=== PATIENT | female | born 1990 | race Caucasian/White ===

== ENCOUNTER 2016-12-13 14:56 | Observation (INO) ==
[2016-12-13 16:19] LABS: Bilirubin,Urine Small (Negative); Blood,Urine Negative (Negative); Clarity,Urine Cloudy (Clear); Color,Urine Yellow (Yellow); Glucose,Urine (UA) Normal (Normal); Ketones,Urine Trace mg/dL (Negative); Leukocyte Esterase,Urine Moderate (Negative); Nitrite,Urine Negative (Negative); Protein,Urine Negative (Neg-Trace); Specific Gravity,Urine 1.027 (1.010-1.025); Urobilinogen,Urine Normal (Normal)
[2016-12-13 16:22] LABS: Bacteria,Urine Many per hpf (None-Few); RBC,Urine 0-3 per hpf (0-3); Squamous Epithelial Cell,Urine Many per lpf (None-Few); WBC,Urine TNTC per hpf (0-3)
[2016-12-13 16:32] LABS: Uric Acid Crystals,Urine Present
[2016-12-13 16:33] LABS: Calcium Oxalate Crystals,Urine Present
--- NOTE | 2016-12-19 14:52 | OB Labor Progress Note ---
Date of Encounter: 12/14/16 Time of Encounter: 16:50 Labor Progress Note - Plan Plan: 26 y/o @ 22+4 weeks presented to L and D as a labor eval, cervix closed, UA sent for culture, FHT checked, patient discharged to follow up outpt
== END 2016-12-13 17:00 | disposition home or self-care (01) ==
LOC: 1NENULAB
PROVIDERS: ADMIT Student in an Organized Health Care Education/Training Program; ATTEND Student in an Organized Health Care Education/Training Program

== ENCOUNTER 2017-03-17 06:49 | Inpatient (IN) ==
[~2017-03-17 06:49] MED LIST: Famotidine 20 MG/2 ML VIAL IVP PRN; Metoclopramide 10 MG/2 ML VIAL IVP PRN; Naloxone 0.4 MG/ML INJ IVP PRN; Penicillin G Potassium 5,000,000 UNIT in D5% in Water (Mini-Bag+) 100 ML IVPB ONE; Ringers Solution, Lactated 1,000 ML IVC SCH
--- NOTE | 2017-03-17 07:26 | OB/GYN History & Physical ---
Date of Encounter: 03/17/17 Time of Encounter: 07:03 Assessment and Plan (1) 36 weeks gestation of Current visit: Yes Status: Acute Admit to labor and delivery for labor GBS status unknown - PCN prophylaxis started CBC Patient may have nubain and epidural upon request Consider pitocin augmentation Vaginal delivery anticipated POC per consult with Dr Jolley (2) Rupture of membranes with clear amniotic fluid Current visit: Yes Status: Acute GBS status unknown - PCN prophylaxis known (3) Gestational diabetes mellitus (GDM) affecting first Current visit: Yes Status: Acute Accuchecks every 2 hours History of Present Illness Chief complaint: SROM HPI: Ms. Goldberg is a 26 year old female female at 36 weeks 0 days gestation that arrives to labor and delivery with c/o leaking of fluid and cramping. Upon exam she was found to be grossly ruptured and 4cm dilated. Her has been complicated by hypothyroidism and gestation diabetes controlled with metformin, NPH, and humalog. Her level II ultrasound was normal. Her blood type is O positive. Her serology is insignificant. Due to her gestational age, her GBS was not completed. Past Med Surg Social Fam HX - Past Medical History Medical history: thyroid disease Psychiatric history: no psych history - Past Surgical History Surgical History: no surgical history - Social History Smoking Status: Never smoker Smokeless Tobacco Status: No Alcohol use: none Drug use: none - Family History Father Living Status: Still Living Hx Family Cardiac Disorders: Yes (HTN, high cholesterol) Hx Family Respiratory Disorders: No Hx Family Cancer: No Hx Family GI Disorders: No Hx Family Genitourinary Disorders: No Hx Family Endocrine Disorder: Yes (DM) Hx Family Musculoskeletal Disorders: No Hx Family Neuromuscular Disorders: No Hx Family Neurologic Disorders: No Hx Family HEENT Disorders: No Hx Family Autoimmune Disorders: No Hx Family Reproductive Disorders: No Hx Family Psychosocial Disorders: No Hx Family Medical Disorders: No Obstetrical History - Pregnancies : 1 Para: 0 Term: 0 : 0 Ab's: 0 Livin Medications and Allergies Cholecalciferol (D-3) [Vitamin D] 1 tab PO DAILY 12/13/16 [History] Levothyroxine [Synthroid] 37 mcg PO DAILY 12/13/16 [History] Vit No.129/Iron/FA [ One Daily Tablet] 1 tab PO DAILY 12/13/16 [History] metFORMIN [Glucophage] 1 tab PO TID 12/13/16 [History] Insulin LISPRO [HumaLOG] 8 units SQ WMHS 03/17/17 [History] Insulin NPH [HumuLIN NPH] 6 unit SQ HS 03/17/17 [History] Allergies morphine Allergy (Verified 12/13/16 15:33) Swelling of Lip/Tongue/Throat Review of System OB All systems PM: reviewed and no additional remarkable complaints except as stated Exam - Constitutional Constitutional: well developed, well nourished, no acute distress, average body habitus - HEENT HEENT: Normocephaly, Mucus Membranes Moist - Neck Neck exam: full ROM, normal inspection - Lungs Respiratory exam: CTAB - Cardiovascular Cardiovascular exam: RRR, +S1, +S2 - Abdomen Abdomen: Present: bowel sounds normal, gravid, non tender - Extremities Extremities exam: normal capillary refill, normal inspection, radial pulses palpable and symetrical Deep Tendon Reflex Grade: 1+ Diminished - Cervix Dilation: 4 (Per RN exam) Effacement: 90 (Per RN exam) Station: -2 - Uterus Uterus exam: Present: normal size (Gravid) Results All other labs normal. - VTE Reasons for not Prescribing Prophylaxis: Treatment not Indicated - Low risk for VTE
[2017-03-17 07:46] LABS: Basophils % 0.2 %; Eosinophils # 0.1 K/mcL (0.0-0.6); Eosinophils % 1.1 %; Hemoglobin 13.7 g/dL (11.5-15.4); Immature Granulocytes % 0.8 % (0-4); Lymphocytes # 1.6 K/mcL (0.6-4.6); Lymphocytes % 12.1 %; Mean Corpuscular HGB Conc 34.3 g/dL (31.6-35.5); Mean Corpuscular Hemoglobin 29.6 pg (28.0-33.3); Mean Corpuscular Volume 86.4 fL (83.0-100.0); Mean Platelet Volume 9.1 fL (9.4-12.4); Monocytes # 0.6 K/mcL (0.0-1.3); Monocytes % 4.7 %; Neutrophils # 10.4 K/mcL (1.6-8.9); Platelet Count 257 K/mcL (140-400); Red Blood Count 4.63 M/mcL (3.82-4.97); Red Cell Distribution Width 13.4 % (11.5-14.5); Segmented Neutrophils % 81.1 %
[2017-03-17] MEDS: 0.9 % Sodium Chloride 1,000 ML IVC SCH ×2 (07:54→11:16)
--- NOTE | 2017-03-17 08:57 | OB Labor Progress Note ---
Date of Encounter: 03/17/17 Time of Encounter: 08:55 Labor Progress Note - Subjective Subjective: The patient reports that she is mildly uncomfortable with her contractions. She is still losing small amounts of clear fluid. Fetus is active. The patient is declining any pain management at this time - Vital Signs Vital Signs: Afebrile, vital signs stable - Cervix Cervix: 5/90/-1 vtx - Heart Tones Heart Tones: 140s CAT1 - [place]: Contractions spontaneously every 2-5 minutes - Interventions Interventions: 36 week IUP with spontaneous rupture of membranes. Unknown GBS status. History of insulin resistance on insulin, last dose last night - Plan Plan: Monitor blood sugars every 2 hours. Initial blood sugar 86. Penicillin prophylaxis per protocol. Anticipate vaginal delivery.
--- NOTE | 2017-03-17 09:54 | Anesthesia Evaluation PreOp ---
Date of Encounter: 03/17/17 Time of Encounter: 08:50 - Past History Planned Operation: Possible CHETAN/ csection Cardiac History: Denies any Significant Hx Pulmonary History: Denies Any Significant HX BLOCK PILER History: Denies Any Significant HX Other Medical History: Thyroid ([place]imotos - takes synthroid), Other ( gestational diabetes) Anesthesia History: No Prior Anesthetic Complications, Past Anesthesia ( Phlebectomy) : Yes Alcohol Use: none Drug use: none Medications and Allergies Cholecalciferol (D-3) [Vitamin D] 1 tab PO DAILY 12/13/16 [History] Levothyroxine [Synthroid] 37 mcg PO DAILY 12/13/16 [History] Vit No.129/Iron/FA [ One Daily Tablet] 1 tab PO DAILY 12/13/16 [History] metFORMIN [Glucophage] 1 tab PO TID 12/13/16 [History] Insulin LISPRO [HumaLOG] 8 units SQ WMHS 03/17/17 [History] Insulin NPH [HumuLIN NPH] 6 unit SQ HS 03/17/17 [History] Allergies morphine Allergy (Verified 12/13/16 15:33) Swelling of Lip/Tongue/Throat - Meds/Allergy Pre-op Review Medications Reviewed: Yes Allergies Reviewed: Yes Beta Blockers on Current Med List: No Anesthesia Results - Labs 03/17/17 07:30 03/17/17 07:30 Anesthesia Exam Bp 111/75 P 77 Height: 5'8" Weight: 87kg NPO (# of Hours): 3 Pain Scale: 2 Pain Scale Used: Numeric (1 - 10) - HEENT Pupil (Motor): Pupils equal Mallampati: II Teeth: Normal Oral Opening: Greater than 3 - BLOCK PILER BLOCK PILER Motor: Normal RUE, Normal LUE, Normal RLE, Normal LLE, Normal Face BLOCK PILER Sensory: Normal: RUE, LUE, RLE, LLE, Face - Cardiac Rhythm: Regular Murmur: None JVD: No Carotid Bruit: No - Pulmonary Breath Sounds: bilateral Clear Respiratory Effort: Symmetrical Anesthesia Assess/Plan ASA Score: 2 Modified Franchesca Scale for Level of Consciousness: Cooperative, oriented, and tranquil Anesthetic Plan: General, Regional Autologous Blood: No Monitoring Plan: Standard Monitors Recovery Plan: Other
[2017-03-17] MEDS ORDERED: Epidural Premix (fent/bupiv) 110 ML EP ONE ×2 (11:28→17:35)
[2017-03-17] MEDS ORDERED: Bupivacaine-MPF 0.25% 10 ML VIAL ONE (11:28)
[2017-03-17] MEDS ORDERED: *HR* FentaNYL (PF) 100 MCG/2 ML VIAL ONE (11:28)
[2017-03-17] MEDS: Penicillin G Potassium 2,500,000 UNIT in D5% in Water 100 ML IVPB SCH ×2 (12:05→16:07)
[2017-03-17] MEDS ORDERED: Bupivacaine-MPF 0.25% 10 ML VIAL EP ONE (12:07)
[2017-03-17] MEDS ORDERED: *HR* FentaNYL (PF) 100 MCG/2 ML VIAL EP ONE (12:07)
[2017-03-17] MEDS ORDERED: EPHEDrine 50 MG/ML VIAL IVP PRN (12:07)
[2017-03-17] MEDS ORDERED: Ondansetron 4 MG/2 ML VIAL IVP PRN (12:07)
--- NOTE | 2017-03-17 12:10 | Anesthesia Procedures ---
Date of Encounter: 03/17/17 Time of Encounter: 11:34 Procedures: Anesthesia - Epidural/Spinal Patient ID/Chart reviewed: Yes Patient examined: Yes OB Eval: Gestational age: 37 OB Eval: : 1 OB Eval: Hx Para: 0 OB Eval: Dilated at (cm): 5 OB Eval: Contractions: Non-stressed pattern Consent Obtained: Yes Supplemental Oxygen: None/Room Air Site Prep: Aseptic Technique, Sterile prep and drape, Povidone-Iodine 1% Patient position: upright Local Anesthetic: Lidocaine 1% Amount of Local Anesthetic used: 3 Touhy Needle Gauge: 18 Touhy Needle Depth (cm): 6 Catheter Depth at Skin (cm): 14 Test Dose (1.5% Lido + Epi): Volume given (mls): 3 Test Dose Result: Negative Loading Dose: 0.25% Marcaine (mls): 10 Loading Dose: Fentanyl (mcg): 100 Loading Dose Administered: Thru Catheter Infusion Med: 0.125% Bupivacaine w/ 2 mcg/ml Fentanyl Infusion Rate (mls/hr): [address]: Tegaderm, Tape Interspace Used: L4-L5 Loss of Resistance (TOM): Yes Blood: No CSF: No Paresthesia: No Procedure: CHETAN placed 1st pass without any immediate noted complications. VSS throughout. Vitals + FHT's: 1134 BP 134/84\ P 92 1200 BP 115/77 P 74
[2017-03-17] MEDS ORDERED: Epidural Premix (fent/bupiv) 110 ML EP SCH (12:15)
[2017-03-17] MEDS ORDERED: Oxytocin 20 units/ LR 1000 mL 20 UNIT/1,000 ML BAG IVC ONE (15:10)
[2017-03-17] MEDS ORDERED: Oxytocin 20 units/ LR 1000 mL 20 UNIT/1,000 ML BAG IVC SCH ×2 (19:00→21:50)
--- NOTE | 2017-03-17 20:21 | OB/GYN Procedure Note ---
Delivery - Delivery Date: 03/17/17 Provider: Gilma Malhotra Intrapartum events: none Delivery induction: none Delivery augmentation: pitocin Delivery monitor: external FHT, external uterine Anesthesia: epidural Estimated Blood Loss: 100 - (s) Infant A Delivery Date: 03/17/17 Delivery Time: 19:37 Presentation: vertex Position: KEANU Route of delivery: Gender: Male Viability: Viable Pounds: 6 Ounces: 3 Weight Gram: 2.815 kg at 1 minute: 8 at 5 mins: 9 Shoulder Dystocia: not encountered Specimens collected: cord blood Placenta: spontaneous, uterine exploration (No retained products of conception or abnormalities palpated) Cord: 3 umbilical vessels - Repair Episiotomy: none Laceration Description: Perineal - 2nd Degree, Labial (right) - Complications Delivery complications: none Delivery comments: The patient was complete and pushing with epidural anesthesia with a spontaneous vaginal delivery in the KEANU position of a vigorous male weighing 6 lbs. 3 oz. with Apgars of 8 at 1 minute and 9 at 5 minutes. Infant was placed on the maternal abdomen. The cord was clamped and cut after pulsations ceased. Cord blood obtained. The placenta was delivered spontaneous and intact. Right labial laceration was repaired with 4-0 Monocryl in a running nonlocking fashion. There is a second-degree perineal laceration which was repaired with 3-0 Vicryl in the usual fashion. Estimated blood loss 100 mL, complications none - Disposition Mom disposition: stable in LDR disposition: stable in LDR
[2017-03-17] MEDS ORDERED: Rho Immune Globulin 1,500 UNIT SYRINGE IM PRN (21:50)
[2017-03-17] MEDS ORDERED: *HR* HYDROcodone/Acet 5/325 mg TABLET PO PRN (21:50)
[2017-03-17] MEDS ORDERED: Measles/Mumps/Rubella Vacc 0.5 ML VIAL SQ PRN (21:50)
[2017-03-18] MEDS: Ibuprofen 600 MG TABLET PO PRN ×2 (03:43→15:42)
[2017-03-18 06:12] LABS: Basophils % 0.2 %; Eosinophils # 0.2 K/mcL (0.0-0.6); Eosinophils % 1.1 %; Hematocrit 36.8 % (35.3-44.9); Hemoglobin 12.6 g/dL (11.5-15.4); Immature Granulocytes % 0.9 % (0-4); Lymphocytes # 1.5 K/mcL (0.6-4.6); Lymphocytes % 10.6 %; Mean Corpuscular HGB Conc 34.2 g/dL (31.6-35.5); Mean Corpuscular Hemoglobin 30.1 pg (28.0-33.3); Mean Platelet Volume 9.3 fL (9.4-12.4); Monocytes % 7.3 %; Neutrophils # 11.4 K/mcL (1.6-8.9); Platelet Count 225 K/mcL (140-400); Red Blood Count 4.18 M/mcL (3.82-4.97); Red Cell Distribution Width 13.6 % (11.5-14.5); Segmented Neutrophils % 79.9 %
[2017-03-18] MEDS: *HR* Metformin 500 MG TABLET PO SCH (08:57)
[2017-03-18] MEDS: Prenatal Vit/FA 1 EACH TABLET PO SCH (08:57)
[2017-03-18] MEDS ORDERED: LEVOTHYROXINE PO SCH (09:00)
[2017-03-18] MEDS: Levothyroxine 25 MCG TABLET PO SCH (10:15)
--- NOTE | 2017-03-18 10:41 | OB/GYN Progress Note ---
Date of Encounter: 03/18/17 Time of Encounter: 10: - Assessment and Plan (1) Status post vaginal delivery Current Visit: Yes Status: Acute s/p , PPD#1, patient doing very well, cont current inpt care, ok for discharge tomorrow, cont Metformin, check FS for 24 hrs Subjective - Subjective Patient reports: appetite normal, voiding normally, pain well controlled, ambulating normally : doing well Objective - Latest Vital Signs Latest vital signs: Vital Signs Temp Pulse Resp BP Pulse Ox 03/18/17 08:05 97.7 F 79 16 109/78 96 03/18/17 03:22 98.2 F 93 16 110/78 97 03/18/17 01:15 98.5 F 95 16 115/76 97 03/17/17 23:28 98.4 F 99 16 122/82 98 03/17/17 22:40 98.3 F 94 16 119/83 98 Intake and Output 03/17/17 03/18/17 03/18/17 23:59 07:59 15:59 Intake Total 900 / 900 700 / 700 400 / 400 Output Total 1550 / 1550 1100 / 1100 600 / 600 Balance -650 / -650 -400 / -400 -200 / -200 Intake: Oral 900 / 900 200 / 200 400 / 400 Other 500 / 500 Output: Urine 450 / 450 1100 / 1100 600 / 600 Straight Cath 200 / 200 Catheter 900 / 900 Other: Weight 85.7 kg 86.3 kg Blood Glucose* 102 Patient Weight 03/18/17 23:59 Weight 86.3 kg - Exam Lungs: bilateral: normal Chest: Normal S1, Normal S2 Extremities: Present: normal Abdomen: Present: normal appearance, soft Uterus: Present: firm - Labs Labs: Laboratory Results - last 24 hr 03/17/17 03/17/17 03/17/17 11:24 13:32 15:32 WBC RBC Hgb Hct MCV MCH MCHC RDW Plt Count MPV Immature Gran % Seg Neutrophils % Lymphocytes % Monocytes % Eosinophils % Basophils % Neutrophils # Lymphocytes # Monocytes # Eosinophils # Basophils # Glucose POC Glucose 90 H 88 83 03/17/17 03/18/17 03/18/17 17:30 05:29 05:29 WBC 14.3 H RBC 4.18 Hgb 12.6 Hct 36.8 MCV 88.0 MCH 30.1 MCHC 34.2 RDW 13.6 Plt Count 225 MPV 9.3 L Immature Gran % 0.9 Seg Neutrophils % 79.9 Lymphocytes % 10.6 Monocytes % 7.3 Eosinophils % 1.1 Basophils % 0.2 Neutrophils # 11.4 H Lymphocytes # 1.5 Monocytes # 1.0 Eosinophils # 0.2 Basophils # 0.0 Glucose 106 H POC Glucose 81 0517 07:53 WBC RBC Hgb Hct MCV MCH MCHC RDW Plt Count MPV Immature Gran % Seg Neutrophils % Lymphocytes % Monocytes % Eosinophils % Basophils % Neutrophils # Lymphocytes # Monocytes # Eosinophils # Basophils # Glucose POC Glucose 102 H
[2017-03-19] MEDS: Ibuprofen 600 MG TABLET PO PRN (02:39)
[2017-03-19] MEDS: Levothyroxine 25 MCG TABLET PO SCH (06:34)
[2017-03-19 08:32] VITALS: BP 115/79
[2017-03-19] MEDS: Prenatal Vit/FA 1 EACH TABLET PO SCH (08:32)
[2017-03-19] MEDS: *HR* Metformin 500 MG TABLET PO SCH (08:32)
--- NOTE | 2017-03-19 11:01 | Discharge Summary ---
Date of Encounter: 03/19/17 Time of Encounter: 10:59 - Discharge Diagnosis (1) delivery Priority: Primary Status: Acute Comments: The patient is doing well. She will be discharged at 48 hours. She is requesting a breast pump. Her will be observed overnight due to prematurity - Discharge Medications Prescriptions: Ibuprofen [Motrin] 600 mg PO Q6HR PRN #30 tablet PRN Reason: moderate pain Breast Pump [BREAST PUMP] 1 each .ROUTE AD #1 each Home Medications: Cholecalciferol (D-3) [Vitamin D] 1 tab PO DAILY 12/13/16 [History] Levothyroxine [Synthroid] 37 mcg PO DAILY 12/13/16 [History] Vit No.129/Iron/FA [ One Daily Tablet] 1 tab PO DAILY 12/13/16 [History] metFORMIN [Glucophage] 1 tab PO TID 12/13/16 [History] Breast Pump [BREAST PUMP] 1 each .ROUTE AD #1 each 03/19/17 [Rx] Ibuprofen [Motrin] 600 mg PO Q6HR PRN #30 tablet 03/19/17 [Rx] Allergies/Adverse Reactions: Allergies morphine Allergy (Verified 12/13/16 15:33) Swelling of Lip/Tongue/Throat Data Procedures and tests throughout hospitalization: Laboratory Tests 03/17/17 03/17/17 03/17/17 07:30 07:30 09:28 WBC 12.8 H RBC 4.63 Hgb 13.7 Hct 40.0 MCV 86.4 MCH 29.6 MCHC 34.3 RDW 13.4 Plt Count 257 MPV 9.1 L Immature Gran % 0.8 Seg Neutrophils % 81.1 Lymphocytes % 12.1 Monocytes % 4.7 Eosinophils % 1.1 Basophils % 0.2 Neutrophils # 10.4 H Lymphocytes # 1.6 Monocytes # 0.6 Eosinophils # 0.1 Basophils # 0.0 Glucose 87 POC Glucose 94 H 03/17/17 03/17/17 03/17/17 11:24 13:32 15:32 WBC RBC Hgb Hct MCV MCH MCHC RDW Plt Count MPV Immature Gran % Seg Neutrophils % Lymphocytes % Monocytes % Eosinophils % Basophils % Neutrophils # Lymphocytes # Monocytes # Eosinophils # Basophils # Glucose POC Glucose 90 H 88 83 03/17/17 03/18/17 03/18/17 17:30 05:29 05:29 WBC 14.3 H RBC 4.18 Hgb 12.6 Hct 36.8 MCV 88.0 MCH 30.1 MCHC 34.2 RDW 13.6 Plt Count 225 MPV 9.3 L Immature Gran % 0.9 Seg Neutrophils % 79.9 Lymphocytes % 10.6 Monocytes % 7.3 Eosinophils % 1.1 Basophils % 0.2 Neutrophils # 11.4 H Lymphocytes # 1.5 Monocytes # 1.0 Eosinophils # 0.2 Basophils # 0.0 Glucose 106 H POC Glucose 81 03/18/17 03/18/17 03/18/17 07:53 11:32 15:45 WBC RBC Hgb Hct MCV MCH MCHC RDW Plt Count MPV Immature Gran % Seg Neutrophils % Lymphocytes % Monocytes % Eosinophils % Basophils % Neutrophils # Lymphocytes # Monocytes # Eosinophils # Basophils # Glucose POC Glucose 102 H 92 H 131 H 03/18/17 22:18 WBC RBC Hgb Hct MCV MCH MCHC RDW Plt Count MPV Immature Gran % Seg Neutrophils % Lymphocytes % Monocytes % Eosinophils % Basophils % Neutrophils # Lymphocytes # Monocytes # Eosinophils # Basophils # Glucose POC Glucose 112 H Labs on day of discharge: Labs from last 24 hours 03/18/17 03/18/17 03/18/17 22:18 15:45 11:32 POC Glucose 112 H 131 H 92 H Date of admission: 03/17/17 06:49 Primary care physician: PCP NO Consults: 03/17/17 21:50 Consult to Scale Adjuster [CONS] Routine Comment: Vaginal delivery, consult needed Discharging clinician: Gilma Malhotra Anticipated date of discharge: 03/19/17 - Patient Status Disposition: Home, Self-Care Condition: Good Functional capacity at discharge: independent ambulation Overall status at discharge: patient is progressing back to baseline - Discharge Instructions Follow Up With: NO,PCP [Primary Care Provider] - Additional Instructions: Perineal Care: Always wipe front to back Change your pad frequently Use your raysa bottle with warm water and spray front to back Do not douche, use tampons, have sexual intercourse or put anything in your vagina for 4-6 weeks after delivery Bleeding: Vaginal bleeding can last up to 6 weeks Your menstrual period may return as early as 6 weeks after you are discharged from the hospital Pj/Stitches Care: Vaginal Delivery Vaginal stitches will dissolve within 4-6 weeks Follow perineal care instructions Care Stitches will dissolve on their own If you have pj, they will need to be removed in the doctors office within 5-7 days. You may shower with stitches or pj Drip plan or soapy water over the incision to clean. Pat dry gently with a clean towel. Make sure you completely dry under the skin folds DO NOT USE powders, lotions, rubbing alcohol or hydrogen peroxide on or around your incision. This will slow your wound healing It is normal to have soreness, burning, tingling, itchiness and/or numbness as your incision heals Activity: Rest frequently Do not lift anything heavier than a gallon of milk, up to 10-15 pounds No driving for 1-2 weeks for Vaginal delivery No driving for 2-4 weeks for delivery Take stairs slowly, one at a time Gradually increase your daily activity until you are back to your normal routine Do not exercise until you have had your follow-up appointment Bathing: Take a shower daily Do not take a tub bath for the first 4 weeks Diet: Drink plenty of water and fruit juices Eat a well-balanced diet with foods high in fiber such as fruits and vegetables Depression: Your hormones have a major impact on your feelings and emotions. Hormone imbalance may cause changes in your mood, creating unfamiliar thoughts and actions. Support is available to help you understand and cope with these feelings and mood changes. If you answer yes to any of the following questions, please call your health care provider: Are you having trouble sleeping? Are you feeling isolated? Have you lost your appetite? Are you having thoughts of hurting yourself or others? WARNING SIGNS: Heavy bleeding from the vagina (blood is bright red and soaks a sanitary pad in an hour or less.) Passing a blood clot larger than your fist Discharge from the vagina that has a bad odor Temperature over 100.4 F, or if you feel cold and have chills An episiotomy site that is warm, swollen or oozing. Use a mirror if needed Urination (pee) that is painful, very red and swollen or leaking fluid An incision that is painful, very red and swollen and leaking fluid An incision that has come open Breasts that are painful or full with flu like symptoms Redness, warmth or swelling in the calf of your leg Trouble breathing, dizziness, visual disturbance or faintness *Notify your health care provider immediately or go to the nearest Emergency Room if you experience any of the above signs.* To contact the nurses station 24 hours a day, For non-urgent, routine questions, please call the office at - Diet and Activity Activity: increase activity as tolerated, resume usual activities as tolerated Diet: diabetic diet Hospital Course Procedures: Reason for admission: active labor, labor, rupture of membranes Delivery: Episiotomy: none complications: none Discharge diagnosis: delivery baby: male Hospital course: The patient has done well . She is requesting a breast pump. Bazine is being observed for a third day. She has had appropriate lochia and normal labs. Her glucose monitoring has been reassuring. She is requesting discharge Time Attestation: Total time spent providing and/or coordinating discharge services: Time Spent: Less than 30 minutes Exam - Constitutional Vitals: Temp Pulse Resp BP Pulse Ox 98.2 F 81 16 115/79 97 03/19/17 08:31 03/19/17 08:31 03/19/17 09:44 03/19/17 08:31 03/19/17 08:31 General appearance IM: cooperative, A&O X 3, pleasant, no acute distress - Respiratory Respiratory exam: Absent: respiratory distress - Cardiovascular Cardiovascular exam IM: Absent: irregular rhythm - GI/Abdominal GI/Abdominal exam IM: normal bowel sounds, soft, no peritoneal signs - Rectal Rectal exam: deferred - Uterine Tone: Firm Uterus Position: 2 Fingers Below Umbilicus - Extremities Exam Extremities exam IM: Present: normal inspection, warm. Absent: calf tenderness - Neurological Exam Neurological exam: alert, no focal deficits
== END 2017-03-19 11:57 | disposition home or self-care (01) | DRG 775 ==
LOC: 1NENULAB → 1NENUOBS 21:43
PROVIDERS: ADMIT Advanced Practice Midwife; ATTEND Obstetrics & Gynecology

== ENCOUNTER → 2019-09-11 07:28 | Observation (INO) ==
[2019-09-11 01:28] LABS: Bilirubin,Urine Negative (Negative); Blood,Urine Negative (Negative); Clarity,Urine Cloudy (Clear); Color,Urine Yellow (Yellow); Glucose,Urine (UA) Normal (Normal); Ketones,Urine Negative (Negative); Leukocyte Esterase,Urine Negative (Negative); Nitrite,Urine Negative (Negative); PH,Urine 6.5 pH Units (5.0-8.0); Protein,Urine Negative (Neg-Trace); Specific Gravity,Urine 1.012 (1.010-1.025); Urobilinogen,Urine Normal (Normal)
[2019-09-11 01:30] LABS: Bacteria,Urine None Seen per hpf (None-Few); Hyaline Casts,Urine None Seen per lpf (None-Few); RBC,Urine 0-3 per hpf (0-3); Squamous Epithelial Cell,Urine Many per lpf (None-Few); WBC,Urine 0-3 per hpf (0-3)
[2019-09-11 01:42] LABS: Amphetamine Screen,Urine Negative ng/mL (Cutoff=1000); Barbiturate Screen,Urine Negative ng/mL (Cutoff=200); Benzodiazepines Screen,Urine Negative ng/mL (Cutoff=200); Cannabinoid Screen,Urine Negative ng/mL (Cutoff = 50); Cocaine Screen,Urine Negative ng/mL (Cutoff= 300); Opiate Screen,Urine Negative ng/mL (Cutoff=300); Phencyclidine Screen,Urine Negative ng/mL (Cutoff=25)
[~2019-09-11 07:28] MED LIST changes: +Betamethasone Acet/SodPhos 30 MG/5 ML VIAL IM SCH; -Famotidine 20 MG/2 ML VIAL IVP PRN; -Metoclopramide 10 MG/2 ML VIAL IVP PRN; +NIFEdipine 10 MG CAPSULE PO SCH; -Naloxone 0.4 MG/ML INJ IVP PRN; -Penicillin G Potassium 5,000,000 UNIT in D5% in Water (Mini-Bag+) 100 ML IVPB ONE; +Ringers Solution, Lactated 1,000 ML ONE
== END | disposition home or self-care (01) ==
LOC: 1NENULAB
PROVIDERS: ADMIT Registered Nurse; ATTEND Registered Nurse

== ENCOUNTER → 2019-09-11 23:10 | Observation (INO) ==
[2019-09-11 20:51] LABS: Amphetamine Screen,Urine Negative ng/mL (Cutoff=1000); Barbiturate Screen,Urine Negative ng/mL (Cutoff=200); Benzodiazepines Screen,Urine Negative ng/mL (Cutoff=200); Cannabinoid Screen,Urine Negative ng/mL (Cutoff = 50); Cocaine Screen,Urine Negative ng/mL (Cutoff= 300); Opiate Screen,Urine Negative ng/mL (Cutoff=300); Phencyclidine Screen,Urine Negative ng/mL (Cutoff=25)
[~2019-09-11 23:10] MED LIST changes: -NIFEdipine 10 MG CAPSULE PO SCH; -Ringers Solution, Lactated 1,000 ML IVC SCH; -Ringers Solution, Lactated 1,000 ML ONE
== END | disposition home or self-care (01) ==
LOC: 1NENULAB
PROVIDERS: ADMIT Registered Nurse; ATTEND Registered Nurse

== ENCOUNTER → 2019-09-16 01:15 | Observation (INO) ==
[2019-09-15 22:48] LABS: Bilirubin,Urine Negative (Negative); Blood,Urine Negative (Negative); Clarity,Urine Clear (Clear); Color,Urine Yellow (Yellow); Glucose,Urine (UA) Normal (Normal); Ketones,Urine Negative (Negative); Leukocyte Esterase,Urine Negative (Negative); Nitrite,Urine Negative (Negative); Protein,Urine Negative (Neg-Trace); Specific Gravity,Urine 1.008 (1.010-1.025); Urobilinogen,Urine Normal (Normal)
[2019-09-15 22:58] LABS: Amphetamine Screen,Urine Negative ng/mL (Cutoff=1000); Barbiturate Screen,Urine Negative ng/mL (Cutoff=200); Benzodiazepines Screen,Urine Negative ng/mL (Cutoff=200); Cannabinoid Screen,Urine Negative ng/mL (Cutoff = 50); Cocaine Screen,Urine Negative ng/mL (Cutoff= 300); Opiate Screen,Urine Negative ng/mL (Cutoff=300); Phencyclidine Screen,Urine Negative ng/mL (Cutoff=25)
[2019-09-16 00:15] LABS: Candida DNA Not Detected (Not Detect); Gardnerella DNA Not Detected (Not Detect); Trichomonas DNA Not Detected (Not Detect)
== END | disposition home or self-care (01) ==
LOC: 1NENULAB
PROVIDERS: ADMIT Obstetrics & Gynecology; ATTEND Obstetrics & Gynecology

== ENCOUNTER 2019-10-21 10:31 | Inpatient (IN) ==
[2019-10-21] MEDS ORDERED: Metoclopramide 10 MG/2 ML VIAL IVP PRN (11:40)
[2019-10-21] MEDS ORDERED: Ondansetron 4 MG/2 ML VIAL IVP PRN (11:40)
[2019-10-21] MEDS ORDERED: Naloxone 0.4 MG/ML INJ IVP PRN (11:40)
[2019-10-21] MEDS ORDERED: Famotidine 20 MG/2 ML VIAL IVP PRN (11:40)
[2019-10-21] MEDS ORDERED: Lidocaine 1% 20 ML MDV INFILT PRN (11:40)
[2019-10-21] MEDS ORDERED: Azithromycin 500 MG in 0.9 % Sodium Chloride 250 ML IVPB ONE (11:40)
[2019-10-21] MEDS: Ringers Solution, Lactated 1,000 ML IVC SCH ×2 (12:40→12:41)
[2019-10-21 12:41] LABS: Basophils % 0.3 %; Eosinophils # 0.2 K/mcL (0.0-0.6); Eosinophils % 1.6 %; Hematocrit 37.7 % (35.3-44.9); Immature Granulocytes % 0.8 % (0-4); Lymphocytes # 1.7 K/mcL (0.6-4.6); Mean Corpuscular HGB Conc 34.5 g/dL (31.6-35.5); Mean Corpuscular Hemoglobin 30.4 pg (28.0-33.3); Mean Corpuscular Volume 88.1 fL (83.0-100.0); Mean Platelet Volume 9.5 fL (9.4-12.4); Monocytes # 0.5 K/mcL (0.0-1.3); Monocytes % 5.4 %; Neutrophils # 7.4 K/mcL (1.6-8.9); Platelet Count 228 K/mcL (140-400); Red Blood Count 4.28 M/mcL (3.82-4.97); Red Cell Distribution Width 13.3 % (11.5-14.5); Segmented Neutrophils % 74.9 %; White Blood Count 9.9 K/mcL (4.3-11.1)
[2019-10-21 12:50] LABS: Amphetamine Screen,Urine Negative ng/mL (Cutoff=1000); Barbiturate Screen,Urine Negative ng/mL (Cutoff=200); Benzodiazepines Screen,Urine Negative ng/mL (Cutoff=200); Cannabinoid Screen,Urine Negative ng/mL (Cutoff = 50); Cocaine Screen,Urine Negative ng/mL (Cutoff= 300); Opiate Screen,Urine Negative ng/mL (Cutoff=300); Phencyclidine Screen,Urine Negative ng/mL (Cutoff=25)
[2019-10-21] MEDS ORDERED: Epidural Premix (fent/bupiv) 110 ML EP ONE (13:10)
[2019-10-21] MEDS ORDERED: Epidural Premix (fent/bupiv) 110 ML EP SCH (13:15)
[2019-10-21] MEDS ORDERED: *HR* FentaNYL (PF) 100 MCG/2 ML VIAL ONE (14:27)
[2019-10-21] MEDS ORDERED: Bupivacaine-MPF 0.25% 10 ML VIAL ONE (14:27)
[2019-10-21] MEDS ORDERED: Oxytocin 20 units/ LR 1000 mL 20 UNIT/1,000 ML BAG IVC ONE ×2 (15:29→17:38)
[2019-10-21] MEDS ORDERED: Rho Immune Globulin 1,500 UNIT SYRINGE IM PRN (17:45)
[2019-10-21] MEDS ORDERED: *HR* HYDROcodone/Acet 5/325 mg TABLET PO PRN (17:45)
[2019-10-21] MEDS ORDERED: Oxytocin 20 units/ LR 1000 mL 20 UNIT/1,000 ML BAG IVC SCH (17:45)
[2019-10-21] MEDS ORDERED: Measles/Mumps/Rubella Vacc 0.5 ML VIAL SQ PRN (17:45)
[2019-10-21] MEDS ORDERED: Sennosides 8.6 MG TABLET PO PRN (17:45)
[2019-10-21] MEDS ORDERED: Benzocaine/Menthol 56 GM AEROSOL SPRAY TP PRN (17:45)
[2019-10-21] MEDS ORDERED: Lanolin 7 G OINT...G. TP PRN (17:45)
[2019-10-21] MEDS: *HR* Metformin 500 MG TABLET PO SCH (18:11)
[2019-10-21] MEDS: Ibuprofen 600 MG TABLET PO PRN (18:12)
[2019-10-22] MEDS: Ibuprofen 600 MG TABLET PO PRN ×2 (05:19→11:47)
[2019-10-22] MEDS ORDERED: Levothyroxine 25 MCG TABLET PO SCH (06:30)
[2019-10-22 06:41] LABS: Basophils # 0.1 K/mcL (0.0-0.2); Basophils % 0.4 %; Eosinophils # 0.3 K/mcL (0.0-0.6); Eosinophils % 2.2 %; Hematocrit 38.7 % (35.3-44.9); Immature Granulocytes % 0.8 % (0-4); Lymphocytes # 2.4 K/mcL (0.6-4.6); Lymphocytes % 21.8 %; Mean Corpuscular HGB Conc 33.6 g/dL (31.6-35.5); Mean Corpuscular Hemoglobin 30.4 pg (28.0-33.3); Mean Corpuscular Volume 90.4 fL (83.0-100.0); Mean Platelet Volume 9.3 fL (9.4-12.4); Monocytes # 0.8 K/mcL (0.0-1.3); Monocytes % 6.9 %; Neutrophils # 7.6 K/mcL (1.6-8.9); Platelet Count 218 K/mcL (140-400); Red Blood Count 4.28 M/mcL (3.82-4.97); Red Cell Distribution Width 13.5 % (11.5-14.5); Segmented Neutrophils % 67.9 %; White Blood Count 11.2 K/mcL (4.3-11.1)
[2019-10-22 07:55] VITALS: BP 115/78
[2019-10-22] MEDS: Acetaminophen 325 MG TABLET PO PRN ×2 (08:01→14:47)
[2019-10-22] MEDS ORDERED: Prenatal Vit/FA 1 EACH TABLET PO SCH (09:00)
[2019-10-22] MEDS: *HR* Metformin 500 MG TABLET PO SCH (11:47)
== END 2019-10-22 17:25 | disposition home or self-care (01) | DRG 807 ==
LOC: 1NENULAB → OBSVTOIN 10:31 → 1NENULAB 12:26 → 1NENUOBS 17:44
PROVIDERS: ADMIT Advanced Practice Midwife; ATTEND Advanced Practice Midwife